=== PATIENT | female | born 1980 | race Two or more races ===

== ENCOUNTER → 2019-01-26 16:41 | Outpatient (CLI) | payer OTHER, SELFPAY ==
[2019-01-26 18:29] LABS: Free T3 2.9 pg/mL (2.18-3.98); Thyroid Stim Hormone (TSH) 1.67 uIU/mL (0.358-3.74)
== END ==
PROVIDERS: Visit Provider Obstetrics & Gynecology
DX: N92.0 Excessive and frequent menstruation with regular cycle (principal)
CPT/HCPCS: 84439; 84443; 84481

== ENCOUNTER → 2019-02-09 13:30 | Outpatient (CLI) | payer OTHER, SELFPAY ==
[2019-02-12 17:00] LABS: HPV APTIMA, High Risk Negative (Negative)
== END ==
PROVIDERS: Visit Provider Obstetrics & Gynecology
DX: Z12.4 Encounter for screening for malignant neoplasm of cervix (principal)
CPT/HCPCS: 87624; 88175; G0145